=== PATIENT | male | born 1975 | race Caucasian/White ===

== ENCOUNTER → 2017-10-01 12:45 | Outpatient (CLI) | payer OTHER, SELFPAY ==
--- NOTE | 2017-10-01 12:49 | RAD_ITS ---
STUDY: X-RAY CHEST REASON FOR EXAM: Male, 42 years old. Chest pain/pressure. TECHNIQUE: PA and lateral views of the chest. COMPARISON: None. FINDINGS: The lungs are clear and expanded. There is no demonstrated pleural abnormality. Normal size heart. Normal mediastinum and sushil. Normal visualized pulmonary arteries. Normal visualized aortic arch and descending thoracic aorta. There are degenerative changes of the visualized thoracic spine. Normal visualized ribs, clavicles, and shoulders. There is no demonstrated abnormality of the visualized soft tissue structures of the upper abdomen. RAD/Chest PA and Lateral IMPRESSION: Normal x-ray examination of the chest. Electronically Signed: Bruno Maldonado MD at 15:45 EST Tel [phone], Service support ,
== END ==
PROVIDERS: Family Provider Family Medicine; PCP Family Medicine; Visit Provider Family Medicine
DX: R07.89 Other chest pain (principal)
CPT/HCPCS: 71046

== ENCOUNTER → 2017-10-02 07:14 | Outpatient (CLI) | payer OTHER, SELFPAY ==
[2017-10-02 10:20] LABS: Hematocrit 41.2 % (40-54); Mean Corpuscular Hgb 30.8 pg (27.0-32.0); Mean Corpuscular Volume 90.7 fL (80-94); Mean Platelet Vol. 11.3 fl (6.2-12.0); Platelet Count 186 K/mm3 (150-450); RBC Distribution Width CV 12.3 % (11.6-14.6); RBC Distribution Width SD 40.2 fl (35.1-43.9); Red Blood Count 4.54 M/mm3 (4.6-6.2); White Blood Count 5.1 K/mm3 (4.4-11.0)
[2017-10-02 10:21] LABS: Scan Indicated on CBC? Y/N NO
[2017-10-02 11:06] LABS: BUN 23 mg/dL (7-18); Creatinine, Serum 1.23 mg/dL (0.70-1.30); EST Glomerular Filtration Rate 68 mL/min (>60); Glucose 88 mg/dL (74-106)
[2017-10-02 11:07] LABS: Anion Gap 7 (5-15); BUN/Creat Ratio 18.7 RATIO (10-20); Calcium,Total 8.6 mg/dL (8.5-10.1); Chloride 107 mmol/L (98-107); Cholesterol 175 mg/dL (200); Est Glom Filt Rate - Afr Amer 82 mL/min (>60); High Density Lipoprotein 46 mg/dL; Potassium 3.8 mmol/L (3.5-5.1); Sodium Level 142 mmol/L (136-145); Thyroid Stim Hormone (TSH) 1.83 uIU/mL (0.358-3.74); Triglycerides 77 mg/dL; Very Low Density Lipoprotein 15 mg/dL (5-40)
== END ==
PROVIDERS: Family Provider Family Medicine; PCP Family Medicine; Visit Provider Family Medicine
DX: R07.89 Other chest pain (principal)
CPT/HCPCS: 36415; 80048; 80061; 84443; 85027

== ENCOUNTER → 2017-10-11 08:34 | Outpatient (CLI) | payer OTHER, SELFPAY ==
--- NOTE | 2017-10-11 08:37 | RAD_ITS ---
STUDY: X-RAY - ESOPHAGUS (BARIUM SWALLOW) WITH FLUOROSCOPY REASON FOR EXAM: Male, 42 years old. Two-week history of atypical chest pain. TECHNIQUE: 22 view(s) of the esophagus were obtained following swallowing of barium. FLUOROSCOPY TIME (if supplied): (0:29) minutes/seconds COMPARISON: None. FINDINGS: There is no demonstrated esophageal foreign body. There is no demonstrated stricture or mucosal abnormality. Normal gastroesophageal junction, without a demonstrated hiatal hernia. The patient ingested a 12 mm tablet of barium without any difficulty. Normal visualized aortic arch and descending thoracic aorta. Normal visualized pulmonary parenchyma. Normal visualized osseous structures of the thorax. RAD/Esophagus Only IMPRESSION: Normal plain film x-ray examination (barium swallow) of the esophagus. Electronically Signed: Bruno Maldonado MD at 9:33 EST Tel [phone], Service support ,
== END ==
PROVIDERS: Family Provider Family Medicine; PCP Family Medicine; Visit Provider Family Medicine
DX: R07.89 Other chest pain (principal)
CPT/HCPCS: 74220

== ENCOUNTER → 2020-06-28 16:07 | Outpatient (CLI) | payer OTHER, SELFPAY ==
[2015-03-03 17:08] VITALS: BMI 27.8
[2020-06-28 18:05] LABS: Creatinine, Serum 1.41 mg/dL (0.70-1.30); EST Glomerular Filtration Rate 57 mL/min (>60); Est Glom Filt Rate - Afr Amer 69 mL/min (>60)
== END ==
PROVIDERS: PCP Family Medicine; Referring Provider Otolaryngology; Visit Provider Otolaryngology
DX: H93.13 Tinnitus, bilateral (principal)
CPT/HCPCS: 36415; 82565

== ENCOUNTER → 2020-07-06 07:13 | Outpatient (CLI) | payer OTHER, SELFPAY ==
--- NOTE | 2020-07-06 07:45 | MRI_ITS ---
STUDY: MRI BRAIN WITH AND WITHOUT CONTRAST (ATTENTION INTERNAL AUDITORY CANALS - I.A.C.''s) REASON FOR EXAM: Male, 44 years old. Bilateral tinnitus x 2 years TECHNIQUE: Standardized multiplanar fat and water weighted pulse sequences were obtained. 22ml Dotarem via IV was administered for the contrast portion of the examination. COMPARISON: None. FINDINGS: Normal bilateral temporal bones. Normal bilateral internal auditory canals. There is no demonstrated intracanalicular or cisternal vestibular schwannoma (acoustic neuroma). There is no enhancement of the bilateral VIIth or VIIIth cranial nerves. Normal bilateral cochlea, vestibules and semicircular canals. Normal size of the ventricles and extra-axial spaces for the patient''s age. Normal white matter tracts of the supratentorial brain. There is no evidence for recent intracranial ischemia or other cause of cytotoxic edema on diffusion weighted imaging (DWI). Normal bilateral basal ganglia. Normal thalami. Normal flow voids within the major intracranial circulation suggesting patency by spin echo criteria. Normal venous enhancement. There is no enhancing intra-axial or extra-axial abnormality. There is no extra-axial fluid accumulation. Normal sella turcica, pituitary gland, infundibular stalk, optic chiasm and hypothalamus. Normal tectal plate and pineal gland. Normal midbrain, yuliet and medulla. Normal cerebellum. Normal basal cisterns. No demonstrated orbital abnormality, within the constraints of a routine brain study. Normal visualized paranasal sinuses. Normal calvarium and skull base. Normal visualized soft tissue structures. Normal visualized upper cervical spine. MRI/Brain W/WO Contrast IMPRESSION: Normal unenhanced and enhanced MRI of the bilateral internal auditory canals (I.A.C''s). Electronically Signed: Harrison Escobar MD at 9:27 EST Tel , Service support ,
== END ==
PROVIDERS: PCP Family Medicine; Referring Provider Otolaryngology; Visit Provider Otolaryngology
DX: H93.13 Tinnitus, bilateral (principal)
CPT/HCPCS: 70553; A9575

== ENCOUNTER → 2022-09-05 | Outpatient (CLI) | payer OTHER, SELFPAY ==
--- NOTE | 2022-09-05 17:06 | RAD_ITS ---
INDICATION: pain EXAMINATION/TECHNIQUE: X-RAY - XR Spine Cervical 4 or 5 Views COMPARISON: None. FINDINGS: VERTEBRAE: Preserved vertebral body height. No fracture. No spondylolisthesis. There is straightening of cervical lordosis. No significant facet arthropathy. The odontoid process, prevertebral soft tissue planes and alignment of the craniocervical junction are normal. DISCS: Disc spaces are maintained. NECK SOFT TISSUES: No prevertebral soft tissue widening. LUNG APICES: Clear. RAD/Cerv Spine 4 or 5 Views IMPRESSION: No evidence of acute fracture or spondylolisthesis. Electronically Signed: Harrison Moyer MD at 17:50 EST ,
--- NOTE | 2022-09-05 17:07 | RAD_ITS ---
INDICATION: pain EXAMINATION/TECHNIQUE: X-RAY - LEFT XR Shoulder Min 2 Views 4 VIEWS COMPARISON: None. FINDINGS: SOFT TISSUES: No soft tissue swelling or gas. No radiopaque foreign body. BONES/JOINTS: No acute fracture or subluxation.. Normal alignment. Preservation of the joint space.. No sclerotic or destructive changes observed. There is normal glenohumeral alignment is normal appearance the AC joint, visualized rib cage is RAD/Shoulder min 2 Views IMPRESSION: 1. No evidence of fracture, dislocation or focal bony or soft tissue abnormality involving the LEFT shoulder. Electronically Signed: Harrison Moyer MD at 17:58 EST ,
--- NOTE | 2022-09-05 17:07 | RAD_ITS ---
INDICATION: PAIN EXAMINATION/TECHNIQUE: X-RAY - RIGHT XR Shoulder Min 2 Views 4 VIEWS COMPARISON: None. FINDINGS: SOFT TISSUES: No soft tissue swelling or gas. No radiopaque foreign body. BONES/JOINTS: No acute fracture or subluxation.. Normal alignment. Preservation of the joint space.. No sclerotic or destructive changes observed. There is normal glenohumeral motion. Mild degenerative change involving the AC joint. Clavicle, scapula, and visualized RIGHT rib cage have normal appearance. RAD/Shoulder min 2 Views IMPRESSION: 1. No evidence fracture, malalignment or acute bony or joint space abnormality involving the RIGHT shoulder. 2. Mild AC joint degenerative change with osteophyte formation. Electronically Signed: Harrison Moyer MD at 17:59 EST ,
== END | disposition home or self-care (01) ==
LOC: MTRAD 17:06
PROVIDERS: PCP Family Medicine; Referring Provider Family Medicine; Visit Provider Family Medicine
DX: M25.519 Pain in unspecified shoulder (principal); M54.2 Cervicalgia
CPT/HCPCS: 72050; 73030

== ENCOUNTER 2023-02-19 09:00 | Outpatient (RCR) | payer OTHER, SELFPAY ==
--- NOTE | 2023-02-19 11:12 | HP.PTREVAL_ITS ---
Re-Evaluation Intro: Dr. Marcos Robbins MD, It has been my pleasure to treat ALESSANDRA MCKAY over the last 2 visits for neck pain. Please see the progress note below for an update on the physical therapy plan of care! Subjective Subjective: Pt. reports overall well, but is having some issues with B shoulders. He has no neck pain currently. Pt. Objective Objective/Function: Pt. has signs and symptoms consistent with R shoulder RTC pathology. Pt. has + empty can, + pain with ER at side and + HK. He has full active ROM with some mild pain at end range. Full passive motion wihtout pain. I talked with him about having a RTC pathology. It does not present like a full tear, but possibly a partial or tendinosis. I want him to work on some strengthening exercises to work on remodeling his tissue. Pt. to complete for 3- 4 weeks. If not improving he is to follow up with physician. Plan Plan Plan: I want him to work on some strengthening exercises to work on remodeling his tissue. Pt. to complete for 3-4 weeks. If not improving he is to follow up with physician. Balance/Gait/Functional tests Balance/Special Test Scores Oswestry Neck Score: 5 Goals Goals Goal 1:: LTG: Pt. to be I with HEP. Goal Time Frame: 4-6 Weeks Goal Progress: Goal Met Goal 2:: LTG: Pt. to have increased L shoulder ROM Goal Progress: Goal Met Goal 3:: LTG: pt. to have full use of R shoulder without increase in R shoulder pain. Anticipated Interventions Anticipated Interventions Patient/Client Instruction: Educate patient on: Condition, Plan of Care, Risk Factors and Benefits of Fitness Program For the Purpose of:: To foster healthy habits, To improve decision making, To facilitate caregiver knowledge, To improve self management, To prevent re-injury and To improve ability to perform tasks related to life management Therapeutic Exercise to Include: Strength training, Power training, Passive ROM and Active ROM For the Purpose of:: To decrease pain, To increase ROM, To improve nutrient delivery to tissue, To increase oxygenation perfusion and To improve muscle performance and motor function Re-Evaluation Ending Re-evaluation ending: Please do not hesitate to contact me at [phone] by phone or if you have questions or concerns regarding this new plan of care! Sincerely, Michael Qureshi, DPT
== END 2023-02-19 19:00 | disposition home or self-care (01) ==
LOC: PT 09:00
PROVIDERS: PCP Family Medicine; Referring Provider Family Medicine; Visit Provider Family Medicine
DX: M54.2 Cervicalgia (principal)
CPT/HCPCS: 97110; 97161; 97164

== ENCOUNTER → 2023-05-31 | Outpatient (CLI) | payer OTHER, SELFPAY ==
--- NOTE | 2023-05-31 07:15 | MRI_ITS ---
STUDY: MRI RIGHT SHOULDER REASON FOR EXAM: Male, 47 years old. Shoulder pain, rotator cuff disorder, supraspinatus tendinitis, no known injury, ongoing pain. TECHNIQUE: Standardized fat and water weighted pulse sequences were obtained in all 3 orthogonal planes. COMPARISON: Right shoulder radiographs dated 09/05/2022. FINDINGS: There is mild supraspinatus, infraspinatus, and subscapularis tendinosis without a full-thickness tear. Normal teres minor tendon. Normal supraspinatus muscle. Normal infraspinatus muscle. Normal subscapularis muscle. There is severe atrophy and fatty infiltration of the teres minor muscle. There is linear intrasubstance signal within the superior labrum, oriented in the superolateral direction, extending posterior to the biceps-labral anchor (coronal PD series 4 image 13), with an adjacent 3 mm paralabral cyst (coronal T2 series 5 image 14), compatible with a SLAP tear. Normal glenohumeral articulation. There is mild enthesopathic subcortical edema/cyst formation of the greater tuberosity of the humeral head. Normal intracapsular long biceps tendon. Normal rotator interval. There is mild acromioclavicular arthrosis. There is a Type II morphology (curved), with a neutral orientation. There is no subacromial-subdeltoid bursal fluid. Normal visualized coracohumeral and coracoacromial ligaments. Normal quadrilateral space. Normal axillary space. Normal deltoid muscle. Normal trapezius muscle. MRI/Upper Ext Joint Only(Routine) IMPRESSION: SLAP tear with adjacent 3 mm paralabral cyst. Mild supraspinatus, infraspinatus, and subscapularis tendinosis without a full-thickness rotator cuff tear. Severe atrophy and fatty infiltration of the teres minor muscle. Mild acromioclavicular arthrosis. Electronically Signed: Inder Hearn MD at 8:53 EDT Reading Location ID and State: [facility] / [place] , Service support ,
== END | disposition home or self-care (01) ==
PROVIDERS: PCP Family Medicine; Referring Provider Family Medicine; Visit Provider Family Medicine
DX: M75.90 Shoulder lesion, unspecified, unspecified shoulder (principal)
CPT/HCPCS: 73221

== ENCOUNTER → 2023-06-26 | Outpatient (CLI) | payer OTHER, SELFPAY ==
--- NOTE | 2023-06-26 16:24 | RAD_ITS ---
INDICATION: Acute bronchitis EXAMINATION/TECHNIQUE: X-RAY - XR Chest 2 Views COMPARISON: FINDINGS: LINES/DEVICES: None. LUNGS: No consolidation, edema or effusion. No pneumothorax. MEDIASTINUM AND CARDIOVASCULAR STRUCTURES: Cardiac silhouette not enlarged. Central airways and mediastinal contour are unremarkable. BONES AND SOFT TISSUES: Unremarkable. RAD/Chest PA and Lateral IMPRESSION: No radiographic evidence of acute cardiopulmonary disease. Electronically Signed: Maycol Lloyd DO at 23:24 EST Reading Location ID and State: [facility] / [place] Tel [phone], Service support ,
== END | disposition home or self-care (01) ==
LOC: MTRAD 16:23
PROVIDERS: PCP Family Medicine; Referring Provider Family Medicine; Visit Provider Family Medicine
DX: J20.9 Acute bronchitis, unspecified (principal)
CPT/HCPCS: 71046

== ENCOUNTER 2023-08-29 05:58 | Day surgery (SDC) | payer OTHER, SELFPAY ==
--- NOTE | 2023-08-21 13:43 | EKG12_ITS ---
Test Reason : PREOP Blood Pressure : / mmHG Vent. Rate : 086 BPM Atrial Rate : 086 BPM P-R Int : 116 ms QRS Dur : 068 ms QT Int : 338 ms P-R-T Axes : 008 014 039 degrees QTc Int : 404 ms Normal sinus rhythm Low voltage QRS Borderline ECG Confirmed by NIKKI NULL, TITA ([id number]), newspaper copy editor JB FLORES ([id number]) on 08/22/2023 6:21:38 AM Referred By: oJhn Morel Confirmed By:TITA JORDAN MD
[2023-08-29] VITALS (9 sets, daily range): BP systolic 126–145; BP diastolic 81–101; PULSE 80–106; RESP 16–18; TEMP 36.1–36.4; O2SAT 93–100; BMI 36.0
[2023-08-29] MEDS: Lactated Ringers 1,000 ML 15 ML IV (06:37)
--- NOTE | 2023-08-29 07:26 | HP.PCM_ITS ---
HPI - General HPI Narrative ALESSANDRA MCKAY, is a 48 M who presents for right shoulder arthroscopy, subacromial decompression, decompression paralabral cyst, biceps tenodesis as well as possible rotator cuff repair. no changes to h and p. RAB and narcotic counselling, and post op instructions given. pt asked about scope pictures - can show in clinic after. shoulder marked, he understands and ok to proceed. MR#: [id number] Acct: [id number] Name: ALESSANDRA MCKAY Rep #: [id number] : 1975 Provider: Dr. John Morel MD Age/Sex: 47/M Location: [facility] [place] Status: Signed Intake Vital Signs 06/08/2309:59 Height 5 ft 10 in Intake Visit Reasons: RIGHT SHOULDER Chief Complaint: Right shoulder DME Vendor: throbbing in shoulder Accompanied by: Self Is patient in pain?: Yes Allergies codeine Allergy (Verified 07/23/23 14:02) Rash Medications sumatriptan succinate 50 mg tablet mg PO 06/08/23 [History Confirmed 07/23/23] PFSH Medical History History of broken nose Right shoulder pain SLAP lesion of right shoulder Surgical History Hx of vasectomy Family History Mother Hypertension Social History Smoking Status: Never smoker alcohol intake: never HPI RIGHT SHOULDER Details: This documentation accurately reflects the service provided and the decisions made by me, Dr. John Morel MD 07/23/23 4930. Part of today?s visit was documented by [ ], acting as scribe. ALESSANDRA MCKAY is a 47 year old M here today for 6 wks FU right shoulder cortisone injection, slap tear and cyst, tendinosis. felt great for about a month but then over the last 2 weeks the similar pain had come back, can do the lifting but still painful afterwards. thanksgiving 'threw it off'... Ortho Exam General General: Yes no acute distress Neurologic: Yes alert and Yes oriented x3 Psychologic: Yes reasonable and appropriate Right Shoulder Skin/Wound: Yes CDI, No ecchymosis, No erythema and No swelling Testing: Positive Hawkin's, Neer's, Speed's, AROM-Forward Elevation 0-180, AROM- External Rotation at side 0-60, empty can, [place] and belly press normal; Negative TTP Biceps, TTP AC Joint, Drop Arm, cross arm or scapular winging SHOULDER: normal motor and sens to ax nerve, and MRU and AIN/PIN Coding Level of Care Code Off vis,est,level 3 Diagnoses SLAP lesion of right shoulder S43.431A Right shoulder pain M25.511 Assessment and Plan Assessment and Plan (1) SLAP lesion of right shoulder: Status: Acute Plan: 47 M Right shoulder pain, MRI showing SLAP tear w paralabral cyst. The MRI also shows tendinosis of the rotator cuff tendons there may be some partial-thickness insertional fraying as well in my opinion. Patient can try rest ice anti-inflammatories they have already failed 2 courses of conservative management including physical therapy and a cortisone injection. Surgery would be in the form of right shoulder arthroscopy, subacromial decompression, decompression paralabral cyst, biceps tenodesis as well as possi ble rotator cuff repair. Patient understands I explained the pros and cons risk and benefits as well as the postoperative recovery course ... 2 weeks in a sling, 3 months before going back to heavy lifting and demanding work with the shoulder. He understands wished to go ahead with surgery no anticoagulation history of stroke or heart attack. Pros and cons risks and benefits were discussed with the patient including but not limited to infection, pain, stiffness, bleeding, damage to surrounding structures, neurovascular injury, recurrence or retear, failure or wear of hardware or fixation, instability, fracture, deep vein thrombosis and pulmonary embolism, anesthetic risks, , patient dissatisfaction, need for further surgery and other risks. Patient understood and wished to proceed with surgery, and signed the informed consent documentation. [facility] Medical History (Updated 08/21/23 @ 10:59 by Sherita Carroll) Asthma History of broken nose History of steroid therapy Migraine headache Non-smoker Right shoulder pain SLAP lesion of right shoulder Wears contact lenses Home Medications sumatriptan succinate 50 mg tablet 50 mg PO Q2H PRN migraine headache 06/08/23 [History Last Taken Unknown] Allergy/AdvReac Type Severity Reaction Status Date / Time codeine Allergy Rash Verified 08/29/23 06:28 Family History Mother Hypertension Surgical History (Updated 08/21/23 @ 10:59 by Sherita Carroll) History of colonoscopy History of hand surgery History of tonsillectomy Hx of vasectomy Social History Smoking Status: Never smoker alcohol intake: never Vital Signs Vital Signs Vital Signs: 08/29/23 06:28 08/29/23 06:28 Temperature 97.3 F L Temperature Source Temporal Pulse Rate 80 Respiratory Rate 18 Respiratory Pattern Normal Blood Pressure 140/93 H Blood Pressure Mean 108 Blood Pressure Source Monitor Blood Pressure Position Semi-Fowlers Blood Pressure Location Left Arm Pulse Ox 97 Oxygen Delivery Method Room Air Weight Weight: 251 lb 5.231 oz Body Mass Index (BMI) 36.0
[2023-08-29] MEDS: Cefazolin 2 GM in 0.9% Normal Saline (100mL Bag) 100 ML IV (07:56)
--- NOTE | 2023-08-29 08:00 | TESH_PTH ---
PATHOLOGY RESULTS PATIENT: ALESSANDRA MCKAY LOC: [facility] [place] U#:[id number] AGE/SX: 48/M ROOM: RE08/29/[address]: Dr. John Morel MD : 1975 BED: DIS: 08/29/2023 SPEC #: [id number] RECD: 08/29/23 14:17 STATUS: MARV TARYN #: [id number] ORLIN: 08/29/23 08:[address]: John Morel DEPT: SURGICAL PATHOLOGY RECD BY: Ave Jackson ENTERED: 08/30/23 07:11 SP TYPE: TENDON OTHR DR: Dr. Ezio Robbins MD Tissues: Tendon and tendon sheath, NOS Procedures: Surgery Specimen Level III HEADER OPERATION: Right shoulder arthroscopy, subacromial decompression PRE-OP DIAGNOSIS: SLAP lesion shoulder pain TISSUE SUBMITTED: Right biceps tendon MICROSCOPIC DIAGNOSIS Right biceps tendon, biopsy: Fibrotendinous tissue with focal reactive/reparative change. AM:david 08/31/2023 MICROSCOPIC DESCRIPTION Slides are reviewed. GROSS DESCRIPTION Received in fixative is one container labeled with the patient's name and designated right biceps tendon. The specimen consists of a piece of perry, indurated tissue measuring 6.5 x 0.5 x 0.2 cm. Application Engineer sections are submitted in one cassette. / SJ:david 08/30/2023 TC:5 CPT: 50844
[2023-08-29] MEDS: Epinephrine (1 mg/ml) 1 MG/ML VIAL (08:25)
--- NOTE | 2023-08-29 09:08 | OP.PCM_ITS ---
Problems Associated Problem List Diagnoses (1) SLAP lesion of right shoulder: (2) Right shoulder pain: Report of Operation Date of Procedure: 08/29/23 Pre-Operative Diagnosis: Right shoulder and impingement syndrome SLAP tear and paralabral cyst Post-Operative Diagnosis: Same Surgery/Procedure Performed:: Right shoulder arthroscopy subacromial decompression decompression paralabral cyst biceps tenodesis Surgeon: John Morel Type of Anesthesia: Block,Regional and General Anesthesiologist: Walker Kyle Specimen's removed: lhb Estimated Blood Loss (mL): 25 Description of Procedure: Patient brought to the operating room theater. Placed supine on the table. General anesthesia induced. 2 g IV Ancef administered prior to the start of procedure. Patient transferred right side up lateral decubitus beanbag positioner axillary roll used SCDs placed on the legs. All bony prominences padded. 10 pounds of inline traction with the arm in 35 degrees of abduction was used. Upper extremity prepped and draped in the usual sterile fashion allowing over 3 minutes drying time prior to draping. Preoperative timeout performed to confirm site patient and surgery. Began by inserting the arthroscope into the intra-articular portion of the shoulder through a standard posterior arthroscopy portal. Made accessory anterior portal inside-out spinal needle localization through the rotator interval just posterior to the biceps tendon. Did a full diagnostic arthroscopy . Cartilage on the glenoid and humeral head very minor grade 1 changes otherwise normal. Subscapularis as well as the rotator cuff tendons were normal-appearing. Normal axillary recess no loose bodies. There was an obvious superior labral tear type II. I performed multiple trephination's inferior and superior to the superior aspect of the labrum to decompress the paralabral cyst. The biceps root was unstable. Biceps long head tendon was normal. I performed an intra-articular biceps tenotomy to plan for the biceps tenodesis. Debrided remaining labrum. Then placed the scope in the subacromial space. I took arthroscopy pictures throughout and saved them onto the system. Established accessory lateral portal. I did a bursectomy. Minor amount of bursitis. I performed a subacromial compression to flat margins slight downsloping type II acromion. I did the decompression for about 4 mm using a high-speed bur instrument. Probed to the full extent of the superior aspect of the rotator cuff tendons again no tear there. Arthroscope withdrawn. I then turned my attention to the open portion of the procedure. I made a small 1.5 inch incision centered on the proximal anterior medial aspect of the upper humerus. Carried dissection down through skin and subcutaneous tissue achieved meticulous hemostasis. I incised the fascia in line with skin incision. Identified the long head of the biceps tendon. I deliver this through the skin incision. Placed an Allis clamp on the end of the biceps. I used the Arthrex Josh needle with a FiberWire suture to perform 5 locking stitches starting at the musculotendinous junction. I locked the suture distally. I cut the biceps shortening it. I then cut the suture in the mid aspect and passed the sutures in opposite directions through the Arthrex metal button. This was placed to the side. I then identified the mid aspect of the humerus at the groove just distal to the pectoralis major tendon. Cleared away any soft tissue there. I used the spade tip drill bit to drill unicortical hole. Button was placed into the hole flipped and then the tendon delivered down to the tunnel. I then repassed 1 suture limb back through the biceps tendon and performed 5 interrupted half hitches cutting the suture short to fixate the long head of biceps tendon. Skin thoroughly irrigated and subcutaneous tissue irrigated with normal saline. Subcutaneous tissue closed with 2-0 Vicryl suture and skin with 3-0 Monocryl. Skin cleaned with wet dry dressing followed by application of Steri-Strips and OpSite dressings and ABD with tape, with abduction pillow sling for the upper extremity. Patient woken up from a general anesthetic transferred off the operating table and taken postanesthetic care unit in stable condition. All sponge needle instrument counts were correct no complications. cpt 73134 and 49829? Complications none Admit VTE Documentation VTE Present on Admission: No VTE Mechan Device Prophylaxis: SCD's VTE Pharm Prophylaxis ordered?: No Reason prophylaxis not ordered:: Treatment Not Indicated Procedures Musculoskeletal 20xxx-29xxx: Other Procedure See Report
--- NOTE | 2023-08-29 09:17 | EX.PCM.DISCH ---
Discharge Instructions Diet Discharge Diet: No restrictions Activity Ice area for (Minutes): 10 Lifting Restrictions: pendulums, hand wrist elbow rom 4x/day week 0-2 Dressing / Incision Call your doctor if your incision/area has: Continuous Slow Oozing, Sudden Increased Bleeding, Increased Pain/ Swelling, Increased Redness, Foul Smelling Discharge and Swelling at the incision site Change Dressing in: leave in place till F/U Cleanse incision/area with: Do not get Incision Wet Follow Up Care Please Follow Up With: John Morel MD When: 2 days Test Results: Test results from this visit will be discussed in further detail at your follow-up appointment, if applicable. Discharge Plan Admission Attending Provider: John Morel Primary Care Provider: Marcos Robbins Instructions Patient Instructions: After Shoulder Arthroscopy Discharge Orders/Prescriptions Prescriptions: New oxycodone-acetaminophen [Endocet] 5-325 mg tablet 1 tab PO Q4H MDD 6 PRN (Reason: pain) 5 Days Qty: 30 0RF No Action sumatriptan succinate 50 mg tablet 50 mg PO Q2H PRN (Reason: migraine headache) Patient Comments: take 1 tablet by mouth AT ONSET OF HEADACHE and may repeat in 2 hours if needed Other Ambulatory Orders: 12 Lead EKG (Routine) Timeframe: [id number] Location: None Selected Ordered By: Dr. Leroy Ko Referrals / Follow Up: Marcos Robbins MD [Primary Care Provider] - John Morel MD [Med Staff - Active Staff] - Disposition Disposition (needs filled in before D/C Order can be placed): Home, Self Care
[2023-08-29] MEDS: Oxycodone/Apap 5/325 Tablet PO ×2 (10:25→10:36)
== END 2023-08-29 12:40 | disposition home or self-care (01) ==
LOC: SDC 06:02 → AC 06:03
PROVIDERS: PCP Family Medicine; Referring Provider Orthopaedic Surgery Sports Medicine; Visit Provider Orthopaedic Surgery Sports Medicine
PROC: (CPT 29805; principal; 2023-08-29 07:40)
DX: S43.431A Superior glenoid labrum lesion of right shoulder, initial encounter (principal); M75.41 Impingement syndrome of right shoulder; M71.311 Other bursal cyst, right shoulder; X58.XXXA Exposure to other specified factors, initial encounter
CPT/HCPCS: 29822; 23430; 01630; 64415; 88304; 93005; J7120; J2405

== ENCOUNTER → 2023-11-06 | Outpatient (CLI) | payer OTHER, SELFPAY ==
[2023-11-06 10:43] LABS: Anion Gap 5 (5-15); BUN 18 mg/dL (7-18); BUN/Creat Ratio 13.7 RATIO (10-20); Chloride 110 mmol/L (98-107); Cholesterol 169 mg/dL (200); Creatinine, Serum 1.31 mg/dL (0.70-1.30); EST Glomerular Filtration Rate 62 mL/min (>60); Est Glom Filt Rate - Afr Amer 74 mL/min (>60); Glucose 93 mg/dL (74-106); High Density Lipoprotein 33 mg/dL; Potassium 4.1 mmol/L (3.5-5.1); Sodium Level 140 mmol/L (136-145); Thyroid Stim Hormone (TSH) 2.45 uIU/mL (0.358-3.74); Triglycerides 96 mg/dL; Very Low Density Lipoprotein 19 mg/dL (5-40)
== END | disposition home or self-care (01) ==
LOC: MTLAB 08:25
PROVIDERS: PCP Family Medicine; Referring Provider Family Medicine; Visit Provider Family Medicine
DX: E66.9 Obesity, unspecified (principal); Z13.220 Encounter for screening for lipoid disorders; Z13.1 Encounter for screening for diabetes mellitus
CPT/HCPCS: 36415; 80048; 80061; 84403; 84443

== ENCOUNTER 2023-12-26 15:30 | Outpatient (RCR) | payer OTHER, SELFPAY ==
--- NOTE | 2023-09-05 10:25 | HP.PTEVAL_ITS ---
Patient's Visit Information Visit Information Visit Information: ALESSANDRA MCKAY is a 48 year old M referred to Physical Therapy by Dr. John Morel MD with a diagnosis of SUPERIOR GLEINOID LABRUM LESION RIGHT SHOULDER. Date of Evaluation: 09/05/23 Physical Therapist: Arun Schafer PT, Cert MDT, OCS Visit Plan Frequency: 2x /Week Duration: 8 WEEKS Plan: S/P ARTHROSCOPIC SUBACROMIAL DECOMPRESSION BICEPS TENODESIS NO EXCESSIVE LOADING BICEPS 6WEEKS AND RESISTANNCE SUPINATION LIMIT ER 40 ~ 4 WEEKS AND EXTENSION AND HORIZONTAL EXTENSION SEE GUILINES NEEDED FOR PROGRESSION PT INTERVETIONS ROM ,MANUALLY INTAILLY PROGESS TO STRENGTHENING RTC/SCAPULAR , AND POSTURAL EX'S Subjective Subjective: This 48 y/o male presents to physical therapy with right shoulder arthroscopic decompression biceps tenodesis on 08/29/23 at [facility] done Dr. Morel . Patient had nerve block with sling. Patient seen DR 2days post. Patient was oxycodone Patient has had pain since October developed pain in right shoulder and tried PT in February made it worse. Then seen family DR tried sebastiáne. MRI showed tear Patient has some difficulty sleeping. Patient denies paresthesia/tingling - . Patient has limitations with all functional activities and self hygiene. Patient condition affects QOL and function /job demands. Patient goals to prior level of activity SOCAIL: VOCATION: IT at [employer] Pain Right Shoulder: Pain Intensity (Out of 10): 1 Pain Intensity Range: 10 Objective Objective: POSTURE: mild forward posture INISCION: well approximate bandage NEURO: denies paresthesia/tingling PROM: flexion 110 supine degrees ,abduction in scapular 115 degrees ,ER 40 degrees MMT: NT G-H MOBILITY : WFL Balance/Special Test Scores Quick DASH Score: 65.9075 Goals Goal 1:: Patient to be I with HEP for biceps tenodesis Goal Time Frame: 8-12 Weeks Goal 2:: Patient to improve AROM shoulder flexion/abduction 160 degrees and ER 90 degrees to improve function Goal Time Frame: 8-12 Weeks Goal 3:: Patient to demonstrate 70% improvement with increase function and less pain Goal Time Frame: 8-12 Weeks Goal 4:: Patient to improve peak force RTC and deltoid by 15-20 # force to increase function with OH activities Goal Time Frame: 8-12 Weeks Goal 5:: Patient to improve quick dash by 10 points to improve function and QOL Goal Time Frame: 8-12 Weeks Rehabilitation Potential Physical Therapy Diagnosis: This patient underwent s/p arthroscopic sub acromial decompression biceps tenodesis on 08/29/23 with decrease ROM ,strength and function thus benefit from skilled PT Rehabilitation Potential: Good Anticipated Interventions Patient/Client Instruction: Educate patient on: Condition and Plan of Care For the Purpose of:: To decrease pain, To increase ROM, To improve muscle performance and motor function, To improve ability to perform ADL's, To increase tolerance to activity/condition/position, To improve ability of physical actions for home/community/work/leisure, To improve health of tissue, To decrease soft tissue restriction, To increase flexibility/ROM and To improve tolerance to ADL's Therapeutic Exercise to Include: Strength training, Postural training, Flexibilty training and Active ROM Comment: RTC SEE GUIDELINES WITH PROGRESSION AND MD For the Purpose of:: To decrease pain, To improve muscle performance and motor function, To increase tolerance to activity/condition/position, To improve ability of physical actions for home/community/work/leisure, To improve health of tissue, To decrease soft tissue restriction, To increase flexibility/ROM and To improve tolerance to ADL's Manual Therapy Techniques to Include: Mobilization and Passive ROM For the Purpose of:: To decrease pain, To increase ROM, To improve health of tissue, To decrease soft tissue restriction and To increase flexibility/ROM Text: Thank you for the opportunity to evaluate your patient. For Medicare and Medicare HMO plans, please review the plan of care and approve it. It will need to be FAXED BACK to us at [phone] for Medicare purposes. For Medicare only, by signing this I certify the plan of care. Please let me know if there are questions or concerns regarding this plan of care. Physician Signature: Date:
--- NOTE | 2023-12-26 15:59 | HP.PTDCSUM ---
Discharge Summary D/C summary: It has been my pleasure to treat ALESSANDRA MCKAY referred by Dr. John Morel MD, with the diagnosis of SUPERIOR GLEINOID LABRUM LESION RIGHT SHOULDER for a total of 19 visit(s). Discharge Date: 12/26/23 Please see the following information for a summary of their discharge status. Subjective Subjective: Been feeling good for the most part with ex's Been lifting more with housework gradually doing mulch Pain Right Shoulder: Pain Intensity (Out of 10): 0 Overall Improvement % Improvement: 75 Objective Objective/Function: AROM : shoulder flexion /abduction 170 degrees ,ER 90 degrees MMT( pek force) infraspinatus 26.1 ,subscapularis 28.8 ,anterior deltoid 19.8 ,supraspinatus 24.6 Discussed with patient ex's in gym light weight ,shoulder press ,and lateral deltoid and lat pull on machines which patient has gradually increased Goals Goal 1:: Patient to be I with HEP for biceps tenodesis Goal Progress: Goal Met Goal 2:: Patient to improve AROM shoulder flexion/abduction 160 degrees and ER 90 degrees to improve function Goal Progress: Goal Met Goal 3:: Patient to demonstrate 70% improvement with increase function and less pain Goal Progress: Goal Met Goal 4:: Patient to improve peak force RTC and deltoid by 15-20 # force to increase function with OH activities Goal Progress: Goal Met Goal 5:: Patient to improve quick dash by 10 points to improve function and QOL Goal Progress: Goal Met Plan Plan: D/C D/C Information Discharge Comments: HEP AND GYM d/c sentence: If there are questions or concerns regarding this patient's physical therapy, please feel free to call me at [phone]. Thank you for the referral of this patient. Sincerely, Arun Schafer, PT, Cert MDT, OCS Balance/Gait/Functional tests Balance/Special Test Scores Quick DASH Score: 4.5450 Improvement % Improvement: 75
== END 2023-12-26 19:00 | disposition home or self-care (01) ==
LOC: PT 15:30
PROVIDERS: PCP Family Medicine; Referring Provider Orthopaedic Surgery Sports Medicine; Visit Provider Orthopaedic Surgery Sports Medicine
DX: S43.431D Superior glenoid labrum lesion of right shoulder, subsequent encounter (principal); M25.511 Pain in right shoulder
CPT/HCPCS: 97014; 97110; 97161; 97530; G0283

== ENCOUNTER → 2024-06-20 | Outpatient (CLI) | payer OTHER, SELFPAY ==
[2024-06-20 13:16] LABS: Anion Gap 6 (5-15); BUN 13 mg/dL (7-18); BUN/Creat Ratio 9.7 RATIO (10-20); Calcium,Total 9.1 mg/dL (8.5-10.1); Chloride 111 mmol/L (98-107); Cholesterol 220 mg/dL (200); Creatinine, Serum 1.34 mg/dL (0.70-1.30); EST Glomerular Filtration Rate 60 mL/min (>60); Est Glom Filt Rate - Afr Amer 72 mL/min (>60); Glucose 117 mg/dL (74-106); High Density Lipoprotein 45 mg/dL; PSA,Total - Annual Screen 0.54 ng/mL (0.00-4.00); Potassium 4.4 mmol/L (3.5-5.1); Sodium Level 140 mmol/L (136-145); Triglycerides 94 mg/dL; Very Low Density Lipoprotein 19 mg/dL (5-40)
== END | disposition home or self-care (01) ==
LOC: MTLAB 10:23
PROVIDERS: PCP Family Medicine; Referring Provider Family Medicine; Visit Provider Family Medicine
DX: Z13.220 Encounter for screening for lipoid disorders (principal); Z13.1 Encounter for screening for diabetes mellitus; Z12.5 Encounter for screening for malignant neoplasm of prostate
CPT/HCPCS: 36415; 80048; 80061; 84153; G0103